=== PATIENT | male | born 1980 | race Caucasian/White ===

== ENCOUNTER 2016-06-12 00:42 | Emergency (ER) | payer OTHER ==
[~2016-06-12] VITALS: Ht 188 cm; Wt 63.7 kg
[~2016-06-12 00:42] MED LIST: OXYCODONE HCL30 MG PO; PERCOCET 5-3251 EACH PO
[2016-06-12 01:23] VITALS: BP 147/111
== END 2016-06-12 01:25 ==
LOC: EME 00:42
DX: Z02.89 Encounter for other administrative examinations (principal); G89.29 Other chronic pain; F17.200 Nicotine dependence, unspecified, uncomplicated
CPT/HCPCS: 99281; 99283